=== PATIENT | male | born 1975 | race Hispanic/Latino ===

== ENCOUNTER 2020-06-29 03:28 | Observation (INO) | payer SELFPAY ==
[2020-06-29] VITALS (7 sets, daily range): BP systolic 113–119; BP diastolic 68–83
[~2020-06-29] VITALS: Ht 175.3 cm; Wt 108.9 kg
[2020-06-29] MEDS ORDERED: MORPHINE SULFATE 2 MG/ML SYR 1ML IV STA (03:49)
[2020-06-29] MEDS ORDERED: ASPIRIN 81 MG CHEW TAB PO ONE (04:00)
[2020-06-29] MEDS ORDERED: ONDANSETRON HCL INJ 2MG/ML 2ML 2 MG/ML VIAL IV PRN (04:00)
[2020-06-29] MEDS ORDERED: ASPIRIN 325 MG TAB PO ONE (04:00)
[2020-06-29] MEDS ORDERED: SODIUM CHLORIDE FLUSH 10 ML SYR INJ PRN (04:00)
[2020-06-29] MEDS ORDERED: ASPIRIN 325 MG TAB ONE (04:07)
[2020-06-29] MEDS ORDERED: MORPHINE SULFATE INJ 4 MG/ML INJ 1ML ONE (04:08)
[2020-06-29] MEDS ORDERED: ONDANSETRON HCL INJ 2MG/ML 2ML 2 MG/ML VIAL ONE (04:23)
[2020-06-29] MEDS ORDERED: DIPHENHYDRAMINE HCL INJ 50 MG/ML VIAL IV ONE (04:30)
[2020-06-29] MEDS ORDERED: DIPHENHYDRAMINE HCL INJ 50 MG/ML VIAL ONE (04:37)
[2020-06-29] MEDS ORDERED: SODIUM CHLORIDE 0.9% 50ML 50 ML ONE (04:40)
[2020-06-29] MEDS ORDERED: IOPAMIDOL 370 MG/ML 200 ML INFUS..BTL INJ ONE (04:41)
[2020-06-29] MEDS: ASPIRIN 325 MG TAB EC PO SCH (09:00)
[2020-06-29] MEDS ORDERED: ACETAMINOPHEN 325 MG TAB PO PRN (09:00)
[2020-06-29] MEDS ORDERED: INFLUENZA VIRUS VAC SPLIT INJ 0.5 ML SYR IM SCH (09:57)
[2020-06-29] MEDS: HYDROCODONE/APAP 5MG-325MG TAB PO PRN ×3 (10:33→20:45)
[2020-06-29 12:41] LABS: CREATINE KINASE 138 IU/L (30-200)
[2020-06-29] MEDS: KETOROLAC TROMETHAMINE 30 MG/ML VIAL IV PRN ×2 (14:15→22:32)
[2020-06-29 14:18] LABS: CREATINE KINASE 135 IU/L (30-200)
[2020-06-29 18:13] LABS: CREATINE KINASE MB 1.8 ng/mL (0-5.0)
[2020-06-30] VITALS: BP 116/80
[2020-06-30 04:00] VITALS: BP 115/86
[2020-06-30] MEDS: HYDROCODONE/APAP 5MG-325MG TAB PO PRN ×2 (05:00→10:48)
[2020-06-30] MEDS: KETOROLAC TROMETHAMINE 30 MG/ML VIAL IV PRN (06:46)
[2020-06-30 07:53] VITALS: BP 115/86
[2020-06-30 08:00] VITALS: BP 129/75
[2020-06-30] MEDS: ASPIRIN 325 MG TAB EC PO SCH (10:47)
[2020-06-30 12:00] VITALS: BP 131/91
== END 2020-06-30 15:34 | disposition home or self-care (01) ==
LOC: FSED 04:10 → ERHOLD 04:15 → MED/SURG2 07:40
PROVIDERS: ADMIT Internal Medicine; ATTEND Internal Medicine
DX: R07.89 Other chest pain (principal); Z88.0 Allergy status to penicillin; Z91.048 Other nonmedicinal substance allergy status; Z20.828 Contact with and (suspected) exposure to other viral communicable diseases
CPT/HCPCS: 36415; 71045; 71260; 80053; 82550; 82553; 84484; 85025; 93005; 93306; 96374; 96375; 96376; 99284; G0378 ×2; J1200; J1885 ×2; J2270; J2405; Q9967; U0002

== ENCOUNTER 2020-07-02 01:34 | Emergency (ER) | payer SELFPAY ==
[~2020-07-02] VITALS: Ht 175.3 cm; Wt 108.9 kg
[2020-07-02 02:11] LABS: BASOPHILS % 0.4 % (0.0-1.0); EOSINOPHILS % 0.4 % (0.0-6.0); HEMATOCRIT 46.4 % (38.2-49.6); HEMOGLOBIN 15.6 g/dL (14.0-18.0); LYMPHOCYTES # (AUTO) 2.4 (1.0-3.2); LYMPHOCYTES % 29.1 % (18.0-39.1); MEAN CORPUSCULAR HEMOGLOBIN 30.1 pg (28-32); MEAN CORPUSCULAR HGB CONC 33.6 g/dL (31-35); MEAN CORPUSCULAR VOLUME 89.6 fL (81-99); MONOCYTES # (AUTO) 0.5 (0.2-0.8); MONOCYTES % 6.4 % (4.4-11.3); NEUTROPHILS # (AUTO) 5.2 (2.1-6.9); PLATELET COUNT 230 x10e3/uL (140-360); RED BLOOD COUNT 5.18 x10e6/uL (4.3-5.7); RED CELL DISTRIBUTION WIDTH 12.3 % (11.7-14.4)
[2020-07-02 03:01] LABS: ALANINE AMINOTRANSFERASE 30 IU/L (0-55); ALBUMIN 4.3 g/dL (3.5-5.0); ALBUMIN/GLOBULIN RATIO 1.1 (0.8-2.0); ALKALINE PHOSPHATASE 101 IU/L (40-150); ANION GAP 17.6 mmol/L (8-16); BLOOD UREA NITROGEN 7 mg/dL (7-26); BUN/CREATININE RATIO 9 (6-25); CALCIUM 8.5 mg/dL (8.4-10.2); CARBON DIOXIDE 20 mmol/L (22-29); CHLORIDE 107 mmol/L (98-107); CREATINE KINASE 117 IU/L (30-200); EST GLOMERULAR FILTRATION RATE > 60 ML/MIN (60-); GLUCOSE 120 mg/dL (74-118); POTASSIUM 3.6 mmol/L (3.5-5.1); SODIUM 141 mmol/L (136-145)
== END 2020-07-02 03:02 | disposition home or self-care (01) ==
LOC: ER 01:39
DX: R07.9 Chest pain, unspecified (principal); R79.1 Abnormal coagulation profile; R94.31 Abnormal electrocardiogram [ECG] [EKG]
CPT/HCPCS: 36415; 71045; 80053; 82550; 82553; 84484; 85025; 85379; 93005; 99284